=== PATIENT | female | born 2000 | race American Indian/Alaskan Native ===

== ENCOUNTER 2019-06-20 16:22 | Emergency (ER) | payer SELFPAY ==
[2019-06-20] MEDS ORDERED: NACL 0.9% 500 ML 500 ML IV ONE (16:41)
--- NOTE | 2019-06-20 16:45 | Emergency Department Report ---
Blank Doc - Documentation Documentation: 18-year-old female that presents with sore throat and weakness with body aches. This initial assessment/diagnostic orders/clinical plan/treatment(s) is/are subject to change based on patient's health status, clinical progression and re- assessment by fellow clinical providers in the ED. Further treatment and workup at subsequent clinical providers discretion. Patient/guardians urged not to elope from the ED as their condition may be serious if not clinically assessed and managed. Initial orders include: 1- Patient sent to [facility] for further evaluation and treatment 2- code sepsis initiated 3- sepsis protocol
[2019-06-20] MEDS ORDERED: IBUPROFEN PO ONE (16:47)
[2019-06-20 17:02] LABS: Hemoglobin 12.9 gm/dl (10.1-14.3); Mean Corpuscular HGB Conc 34 % (30-34); Mean Corpuscular Volume 82 fl (79-97); Red Blood Count 4.61 M/mm3 (3.65-5.03); Red Cell Distribution Width 14.7 % (13.2-15.2)
--- NOTE | 2019-06-20 17:10 | XRay Report ---
CHEST 1 VIEW INDICATION / CLINICAL INFORMATION: possible Sepsis. COMPARISON: None available. FINDINGS: SUPPORT DEVICES: None. HEART / MEDIASTINUM: No significant abnormality. LUNGS / PLEURA: No significant pulmonary or pleural abnormality.. No pneumothorax. ADDITIONAL FINDINGS: No significant additional findings. IMPRESSION: 1. No acute findings. Signer Name: Tyrell Ocasio MD Signed: 06/20/2019 5:06 PM Workstation Name: [id number]
[2019-06-20 17:13] LABS: INR 1.36 (0.87-1.13)
[2019-06-20 17:36] LABS: Alanine Aminotransferase 81 units/L (7-56); Albumin 3.9 g/dL (3.9-5); BUN/Creatinine Ratio 10; Blood Urea Nitrogen 6 mg/dL (7-17); Calcium 8.7 mg/dL (8.4-10.2); Hemolysis Index 0
[2019-06-20] MEDS ORDERED: NACL 0.9% 1000 ML 2,000 ML ONE (18:08)
[2019-06-20] MEDS ORDERED: DILAUDID IV ONE (18:28)
[2019-06-20] MEDS ORDERED: DECADRON IV ONE (18:28)
[2019-06-20] MEDS ORDERED: BICILLIN L-A IM ONE (18:28)
[2019-06-20] MEDS ORDERED: CLEOCIN 600 MG/50 mL 600 MG/50 ML BAG IV ONE (18:28)
[2019-06-20] MEDS ORDERED: NACL 0.9% 1000 ML 1,000 ML IV ONE (18:29)
[2019-06-20 20:22] LABS: Basophils % (Manual) 0 % (0.0-1.8); Eosinophils % (Manual) 0 % (0.0-4.3); Total Cells Counted 100
[2019-06-20 20:23] LABS: Platelet Estimate Consistent w Auto
[2019-06-20 20:24] LABS: Anisocytosis 1+
[2019-06-20 20:26] LABS: Platelet Count 145 K/mm3 (140-440)
--- NOTE | 2019-06-20 20:27 | Cat Scan Report ---
CT NECK WITH CONTRAST HISTORY: Neck pain with difficulty swallowing and elevated WBC count. COMPARISON: None. TECHNIQUE: Routine CT of the neck is performed following intravenous contrast. All CT scans at this [facility] are performed using CT dose reduction for ALARA by means of automated exposure control. CONTRAST: 100 ml of Omnipaque 300 FINDINGS: Skull Base: No significant abnormality. Parotid, Carotid, Retropharyngeal, Prevertebral, Pharyngeal Mucosal, and [place] Former Spaces: There is extensive hyperenhancing and mucosal swelling of the nasopharyngeal mucosa and bilateral tonsils cons istent with pharyngitis/tonsillitis, with fluid layering in the nasopharynx and obstruction of the na sopharyngeal airway. The oropharyngeal airway remains widely patent though. There is no appreciable f luid collection/abscess. There is no retropharyngeal or prevertebral edema/abscess. Lymphatics: No lymphadenopathy. Vasculature: No significant abnormality. Osseous Structures: No significant abnormality Additional findings: None. IMPRESSION: 1. Significant pharyngitis and tonsillitis with pharyngeal mucosal thickening resulting in significan t narrowing of the nasopharyngeal airway. The oropharyngeal airway remains widely patent. No abscess or prevertebral fluid collection. Signer Name: Hansel Espinosa MD Signed: 06/20/2019 8:23 PM Workstation Name: [id number]
[2019-06-20 21:15] LABS: Bilirubin,Urine NEG (Negative); Blood,Urine NEG (Negative); Color,Urine Yellow (Yellow); Mucus,Urine FEW /HPF; Protein,Urine <15 mg/dL mg/dL (Negative)
--- NOTE | 2019-06-20 21:57 | Emergency Department Report ---
ED General Adult HPI - General Chief complaint: Upper Respiratory Infection Stated complaint: CHEST PAIN/STUFFY NOSE/WEAK Time Seen by Provider: 06/20/19 16:43 Source: patient Mode of arrival: Ambulatory Limitations: No Limitations - History of Present Illness Initial comments: Patient is 18-year-old Sheela female was presented with sore throat for the past 2 weeks. Sore throat and progressively worsening is now a 10 out of 10 when she swallows. Patient also has a mild cough is nonproductive mild nausea and body aches. Patient states is been unable to keep anything down for the last several days. Patient has mild dizziness when she stands. Severity scale (0 -10): 7 - Related Data Previous Rx's Medication Instructions Recorded Last Taken Type Amlodipine Besylate [Norvasc] 5 mg PO DAILY #30 tablet 06/20/19 Unknown Rx Ibuprofen [Motrin 600 MG tab] 600 mg PO Q8H PRN #20 tablet 06/20/19 Unknown Rx Ondansetron [Zofran Odt] 4 mg PO Q8HR #10 tab.rapdis 06/20/19 Unknown Rx predniSONE [Deltasone] 10 mg PO .TAPER #21 tab 06/20/19 Unknown Rx Allergies Allergy/AdvReac Type Severity Reaction Status Date / Time No Known Allergies Allergy Unverified 06/20/19 16:28 ED Review of Systems ROS: Stated complaint: CHEST PAIN/STUFFY NOSE/WEAK Other details as noted in HPI Comment: All other systems reviewed and negative ED Past Medical Hx - Past Medical History Previous Medical History?: No - Surgical History Past Surgical History?: No - Social History Smoking Status: Never Smoker Substance Use Type: None - Medications Home Medications: Home Medications Medication Instructions Recorded Confirmed Last Taken Type Amlodipine Besylate [Norvasc] 5 mg PO DAILY #30 tablet 06/20/19 Unknown Rx Ibuprofen [Motrin 600 MG tab] 600 mg PO Q8H PRN #20 tablet 06/20/19 Unknown Rx Ondansetron [Zofran Odt] 4 mg PO Q8HR #10 tab.rapdis 06/20/19 Unknown Rx predniSONE [Deltasone] 10 mg PO .TAPER #21 tab 06/20/19 Unknown Rx ED Physical Exam - General Limitations: No Limitations General appearance: alert, in no apparent distress - Head Head exam: Present: atraumatic, normocephalic - Eye Eye exam: Present: normal appearance - ENT ENT exam: Present: mucous membranes moist. Absent: normal orophraynx - Expanded ENT Exam Expanded Mouth exam: Present: muffled voice. Absent: drooling, trismus Throat exam: Positive: tonsillar erythema, tonsillomegaly, tonsillar exudate, other (uvula is midline) - Neck Neck exam: Present: lymphadenopathy - Respiratory Respiratory exam: Present: normal lung sounds bilaterally. Absent: respiratory distress, wheezes, rales, rhonchi - Cardiovascular Cardiovascular Exam: Present: regular rate, normal rhythm. Absent: systolic murmur, diastolic murmur, rubs, gallop - GI/Abdominal GI/Abdominal exam: Present: soft, normal bowel sounds. Absent: distended, te nderness, guarding, rebound - Extremities Exam Extremities exam: Present: normal inspection - Back Exam Back exam: Present: normal inspection - Neurological Exam Neurological exam: Present: alert, oriented X3, CN II-XII intact - Psychiatric Psychiatric exam: Present: normal affect, normal mood - Skin Skin exam: Present: warm, dry, intact, normal color. Absent: rash ED Course Vital Signs 06/20/19 06/20/19 06/20/19 16:41 18:10 18:25 Temperature 103.1 F H 101.6 F H Pulse Rate 147 H 133 H Respiratory 19 30 H 26 H Rate Blood Pressure 123/73 Blood Pressure [Right] O2 Sat by Pulse 96 100 100 Oximetry 06/20/19 06/20/19 20:39 20:42 Temperature 98.4 F Pulse Rate 114 H 110 H Respiratory 23 Rate Blood Pressure Blood Pressure 121/65 [Right] O2 Sat by Pulse 98 Oximetry ED Medical Decision Making - Lab Data Result diagrams: 06/20/19 16:46 06/20/19 16:46 Lab Results 06/20/19 06/20/19 06/20/19 Range/Units 16:46 16:46 16:46 WBC 14.3 H (4.5-11.0) K/mm3 RBC 4.61 (3.65-5.03) M/mm3 Hgb 12.9 (10.1-14.3) gm/dl Hct 38.0 (30.3-42.9) % MCV 82 (79-97) fl MCH 28 (28-32) pg MCHC 34 (30-34) % RDW 14.7 (13.2-15.2) % Plt Count 145 (140-440) K/mm3 Lymph % (Auto) Stockholder Lymph # Stockholder Add Manual Diff Complete Total Counted 100 Seg Neutrophils % Stockholder Seg Neuts % (Manual) 56.0 (40.0-70.0) % Band Neutrophils % 0 % Lymphocytes % (Manual) 42.0 H (13.4-35.0) % Reactive Lymphs % (Man) 0 % Monocytes % (Manual) 2.0 (0.0-7.3) % Eosinophils % (Manual) 0 (0.0-4.3) % Basophils % (Manual) 0 (0.0-1.8) % Metamyelocytes % 0 % Myelocytes % 0 % Promyelocytes % 0 % Blast Cells % 0 % Nucleated RBC % Not Reportable Seg Neutrophils # Man 8.0 H (1.8-7.7) K/mm3 Band Neutrophils # 0.0 K/mm3 Lymphocytes # (Manual) 6.0 H (1.2-5.4) K/mm3 Abs React Lymphs (Man) 0.0 K/mm3 Monocytes # (Manual) 0.3 (0.0-0.8) K/mm3 Eosinophils # (Manual) 0.0 (0.0-0.4) K/mm3 Basophils # (Manual) 0.0 (0.0-0.1) K/mm3 Metamyelocytes # 0.0 K/mm3 Myelocytes # 0.0 K/mm3 Promyelocytes # 0.0 K/mm3 Blast Cells # 0.0 K/mm3 WBC Morphology Not Reportable Hypersegmented Neuts Not Reportable Hyposegmented Neuts Not Reportable Hypogranular Neuts Not Reportable Smudge Cells Not Reportable Toxic Granulation Not Reportable Toxic Vacuolation Not Reportable Dohle Bodies Not Reportable Pelger-Huet Anomaly Not Reportable Inge Rods Not Reportable Platelet Estimate Consistent w auto Clumped Platelets Not Reportable Plt Clumps, EDTA Not Reportable Large Platelets Not Reportable Giant Platelets Not Reportable Platelet Satelliting Not Reportable Plt Morphology Comment Not Reportable RBC Morphology Not Reportable Dimorphic RBCs Not Reportable Polychromasia Not Reportable Hypochromasia Not Reportable Poikilocytosis Not Reportable Anisocytosis 1+ Microcytosis Not Reportable Macrocytosis Not Reportable Spherocytes Not Reportable Pappenheimer Bodies Not Reportable Sickle Cells Not Reportable Target Cells Not Reportable Tear Drop Cells Not Reportable Ovalocytes Not Reportable Helmet Cells Not Reportable [place] Bodies Not Reportable [place] Rings Not Reportable Graham Cells Not Reportable Bite Cells Not Reportable Crenated Cell Not Reportable Elliptocytes Not Reportable Acanthocytes (Spur) Not Reportable Rouleaux Not Reportable Hemoglobin C Crystals Not Reportable Schistocytes Not Reportable Malaria parasites Not Reportable Delbert Bodies Not Reportable Hem Pathologist Commnt No PT 16.4 H (12.2-14.9) Sec. INR 1.36 H (0.87-1.13) VBG pH (7.320-7.420) Sodium 136 L (137-145) mmol/L Potassium 3.4 L (3.6-5.0) mmol/L Chloride 98.8 (98-107) mmol/L Carbon Dioxide 20 L (22-30) mmol/L Anion Gap 21 mmol/L BUN 6 L (7-17) mg/dL Creatinine 0.6 L (0.7-1.2) mg/dL Estimated GFR > 60 ml/min BUN/Creatinine Ratio 10 % Glucose 86 (65-100) mg/dL Lactic Acid (0.7-2.0) mmol/L Calcium 8.7 (8.4-10.2) mg/dL Total Bilirubin 0.70 (0.1-1.2) mg/dL AST 100 H (5-40) units/L ALT 81 H (7-56) units/L Alkaline Phosphatase 157 H (35-129) units/L Total Protein 9.0 H (6.3-8.2) g/dL Albumin 3.9 (3.9-5) g/dL Albumin/Globulin Ratio 0.8 % Urine Color (Yellow) Urine Turbidity (Clear) Urine pH (5.0-7.0) Ur Specific [place] (1.003-1.030) Urine Protein (Negative) mg/dL Urine Glucose (UA) (Negative) mg/dL Urine Ketones (Negative) mg/dL Urine Blood (Negative) Urine Nitrite (Negative) Urine Bilirubin (Negative) Urine Urobilinogen (<2.0) mg/dL Ur Leukocyte Esterase (Negative) Urine WBC (Auto) (0.0-6.0) /HPF Urine RBC (Auto) (0.0-6.0) /HPF U Epithel Cells (Auto) (0-13.0) /HPF Urine Mucus /HPF Monoscreen (Negative) 06/20/19 06/20/19 06/20/19 Range/Units 16:46 16:46 18:33 WBC (4.5-11.0) K/mm3 RBC (3.65-5.03) M/mm3 Hgb (10.1-14.3) gm/dl Hct (30.3-42.9) % MCV (79-97) fl MCH (28-32) pg MCHC (30-34) % RDW (13.2-15.2) % Plt Count (140-440) K/mm3 Lymph % (Auto) Lymph # Add Manual Diff Total Counted Seg Neutrophils % Seg Neuts % (Manual) (40.0-70.0) % Band Neutrophils % % Lymphocytes % (Manual) (13.4-35.0) % Reactive Lymphs % (Man) % Monocytes % (Manual) (0.0-7.3) % Eosinophils % (Manual) (0.0-4.3) % Basophils % (Manual) (0.0-1.8) % Metamyelocytes % % Myelocytes % % Promyelocytes % % Blast Cells % % Nucleated RBC % Seg Neutrophils # Man (1.8-7.7) K/mm3 Band Neutrophils # K/mm3 Lymphocytes # (Manual) (1.2-5.4) K/mm3 Abs React Lymphs (Man) K/mm3 Monocytes # (Manual) (0.0-0.8) K/mm3 Eosinophils # (Manual) (0.0-0.4) K/mm3 Basophils # (Manual) (0.0-0.1) K/mm3 Metamyelocytes # K/mm3 Myelocytes # K/mm3 Promyelocytes # K/mm3 Blast Cells # K/mm3 WBC Morphology Hypersegmented Neuts Hyposegmented Neuts Hypogranular Neuts Smudge Cells Toxic Granulation Toxic Vacuolation Dohle Bodies Pelger-Huet Anomaly Inge Rods Platelet Estimate Clumped Platelets Plt Clumps, EDTA Large Platelets Giant Platelets Platelet Satelliting Plt Morphology Comment RBC Morphology Dimorphic RBCs Polychromasia Hypochromasia Poikilocytosis Anisocytosis Microcytosis Macrocytosis Spherocytes Pappenheimer Bodies Sickle Cells Target Cells Tear Drop Cells Ovalocytes Helmet Cells [place] Bodies [place] Rings Day Cells Bite Cells Crenated Cell Elliptocytes Acanthocytes (Spur) Rouleaux Hemoglobin C Crystals Schistocytes Malaria parasites Delbert Bodies Hem Pathologist Commnt PT (12.2-14.9) Sec. INR (0.87-1.13) VBG pH 7.451 H (7.320-7.420) Sodium (137-145) mmol/L Potassium (3.6-5.0) mmol/L Chloride (98-107) mmol/L Carbon Dioxide (22-30) mmol/L Anion Gap mmol/L BUN (7-17) mg/dL Creatinine (0.7-1.2) mg/dL Estimated GFR ml/min BUN/Creatinine Ratio % Glucose (65-100) mg/dL Lactic Acid 1.60 (0.7-2.0) mmol/L Calcium (8.4-10.2) mg/dL Total Bilirubin (0.1-1.2) mg/dL AST (5-40) units/L ALT (7-56) units/L Alkaline Phosphatase (35-129) units/L Total Protein (6.3-8.2) g/dL Albumin (3.9-5) g/dL Albumin/Globulin Ratio % Urine Color (Yellow) Urine Turbidity (Clear) Urine pH (5.0-7.0) Ur Specific [place] (1.003-1.030) Urine Protein (Negative) mg/dL Urine Glucose (UA) (Negative) mg/dL Urine Ketones (Negative) mg/dL Urine Blood (Negative) Urine Nitrite (Negative) Urine Bilirubin (Negative) Urine Urobilinogen (<2.0) mg/dL Ur Leukocyte Esterase (Negative) Urine WBC (Auto) (0.0-6.0) /HPF Urine RBC (Auto) (0.0-6.0) /HPF U Epithel Cells (Auto) (0-13.0) /HPF Urine Mucus /HPF Monoscreen Positive (Negative) 06/20/19 06/20/19 Range/Units 19:30 20:41 WBC (4.5-11.0) K/mm3 RBC (3.65-5.03) M/mm3 Hgb (10.1-14.3) gm/dl Hct (30.3-42.9) % MCV (79-97) fl MCH (28-32) pg MCHC (30-34) % RDW (13.2-15.2) % Plt Count (140-440) K/mm3 Lymph % (Auto) Lymph # Add Manual Diff Total Counted Seg Neutrophils % Seg Neuts % (Manual) (40.0-70.0) % Band Neutrophils % % Lymphocytes % (Manual) (13.4-35.0) % Reactive Lymphs % (Man) % Monocytes % (Manual) (0.0-7.3) % Eosinophils % (Manual) (0.0-4.3) % Basophils % (Manual) (0.0-1.8) % Metamyelocytes % % Myelocytes % % Promyelocytes % % Blast Cells % % Nucleated RBC % Seg Neutrophils # Man (1.8-7.7) K/mm3 Band Neutrophils # K/mm3 Lymphocytes # (Manual) (1.2-5.4) K/mm3 Abs React Lymphs (Man) K/mm3 Monocytes # (Manual) (0.0-0.8) K/mm3 Eosinophils # (Manual) (0.0-0.4) K/mm3 Basophils # (Manual) (0.0-0.1) K/mm3 Metamyelocytes # K/mm3 Myelocytes # K/mm3 Promyelocytes # K/mm3 Blast Cells # K/mm3 WBC Morphology Hypersegmented Neuts Hyposegmented Neuts Hypogranular Neuts Smudge Cells Toxic Granulation Toxic Vacuolation Dohle Bodies Pelger-Huet Anomaly Inge Rods Platelet Estimate Clumped Platelets Plt Clumps, EDTA Large Platelets Giant Platelets Platelet Satelliting Plt Morphology Comment RBC Morphology Dimorphic RBCs Polychromasia Hypochromasia Poikilocytosis Anisocytosis Microcytosis Macrocytosis Spherocytes Pappenheimer Bodies Sickle Cells Target Cells Tear Drop Cells Ovalocytes Helmet Cells [place] Bodies [place] Rings Graham Cells Bite Cells Crenated Cell Elliptocytes Acanthocytes (Spur) Rouleaux Hemoglobin C Crystals Schistocytes Malaria parasites Delbert Bodies Hem Pathologist Commnt PT (12.2-14.9) Sec. INR (0.87-1.13) VBG pH (7.320-7.420) Sodium (137-145) mmol/L Potassium (3.6-5.0) mmol/L Chloride (98-107) mmol/L Carbon Dioxide (22-30) mmol/L Anion Gap mmol/L BUN (7-17) mg/dL Creatinine (0.7-1.2) mg/dL Estimated GFR ml/min BUN/Creatinine Ratio % Glucose (65-100) mg/dL Lactic Acid 1.60 (0.7-2.0) mmol/L Calcium (8.4-10.2) mg/dL Total Bilirubin (0.1-1.2) mg/dL AST (5-40) units/L ALT (7-56) units/L Alkaline Phosphatase (35-129) units/L Total Protein (6.3-8.2) g/dL Albumin (3.9-5) g/dL Albumin/Globulin Ratio % Urine Color Yellow (Yellow) Urine Turbidity Clear (Clear) Urine pH 6.0 (5.0-7.0) Ur Specific [place] 1.045 H (1.003-1.030) Urine Protein <15 mg/dl (Negative) mg/dL Urine Glucose (UA) Neg (Negative) mg/dL Urine Ketones 80 (Negative) mg/dL Urine Blood Neg (Negative) Urine Nitrite Neg (Negative) Urine Bilirubin Neg (Negative) Urine Urobilinogen 2.0 (<2.0) mg/dL Ur Leukocyte Esterase Neg (Negative) Urine WBC (Auto) 3.0 (0.0-6.0) /HPF Urine RBC (Auto) 1.0 (0.0-6.0) /HPF U Epithel Cells (Auto) 2.0 (0-13.0) /HPF Urine Mucus Few /HPF Monoscreen (Negative) - Radiology Data [facility] [address] [place] [address] Cat Scan Report Signed Patient: ISAEL LEIJA MR#: [id number] : 2000 Acct:[id number] Age/Sex: 18 / F ADM Date: 06/20/19 Loc: ED Attending Dr: Ordering Physician: MARGI BELL MD Date of Service: 06/20/19 Procedure(s): CT neck w con Accession Number(s): [id number] cc: MARGI BELL MD CT NECK WITH CONTRAST HISTORY: Neck pain with difficulty swallowing and elevated WBC count. COMPARISON: None. TECHNIQUE: Routine CT of the neck is performed following intravenous contrast. All CT scans at this location are performed using CT dose reduction for ALARA by means of automated exposure cont rol. CONTRAST: 100 ml of Omnipaque 300 FINDINGS: Skull Base: No significant abnormality. Parotid, Carotid, Retropharyngeal, Prevertebral, Pharyngeal Mucosal, and [place]eto Repairer Spaces: There is extensive hyperenhancing and mucosal swelling of the nasopharyngeal mucosa and bilateral tonsils consistent with pharyngitis/tonsillitis, with fluid layering in the nasopharynx and obstruction of the nasopharyngeal airway. The oropharyngeal airway remains widely patent though. There is no appreciable fluid collection/abscess. There is no retropharyngeal or prevertebral edema/abscess. Lymphatics: No lymphadenopathy. Vasculature: No significant abnormality. Osseous Structures: No significant abnormality Additional findings: None. IMPRESSION: 1. Significant pharyngitis and tonsillitis with pharyngeal mucosal thickening resulting in significant narrowing of the nasopharyngeal airway. The oropharyngeal airway remains widely patent. No abscess or prevertebral fluid collection. Signer Name: Hansel Espinosa MD Signed: 06/20/2019 8:23 PM Workstation Name: [id number] Transcribed By: KEIRA Dictated By: Hansel Espinosa MD Electronically Authenticated By: Hansel Espinosa MD Signed Date/Time: 06/20/192022 DD/ 19 TD/TT: - Medical Decision Making Patient is 18-year-old Female who is presenting with sore throat. Patient may review of her laboratory studies has a slight increase of her white count however lactic acid is within normal limits and there is no evidence of end organ damage suggestive of sepsis. Patient is positive for mono. Patient was hydrated for dehydration. Patient given 10 mg of Decadron as well as pain medications. At the end of the patient's visit she was able to swallow and keep down water. Patient states she is able to open her mouth better. Patient will be discharged home with medications for symptomatic relief. Critical care attestation.: If time is entered above; I have spent that time in minutes in the direct care of this critically ill patient, excluding procedure time. ED Disposition Clinical Impression: Exudative pharyngitis Mononucleosis Qualifiers: Infectious mononucleosis etiology: gammaherpesvirus (incl. EBV) Infectious mononucleosis complication: without complication Qualified Code(s): B27.00 - Gammaherpesviral mononucleosis without complication Disposition: DC-01 TO HOME OR SELFCARE Is pt being admited?: No Does the pt Need Aspirin: No Condition: Stable Instructions: Mononucleosis (ED) Referrals: LUIS BURGER MD [Primary Care Provider] - 3-5 Days Time of Disposition: 21:57
[2019-06-20 22:27] VITALS: BP 99/55
== END 2019-06-20 23:10 | disposition home or self-care (01) ==
LOC: ED 16:22
DX: J02.9 Acute pharyngitis, unspecified (principal); B27.90 Infectious mononucleosis, unspecified without complication
CPT/HCPCS: 36415; 70491; 71045; 80053; 81001; 82140; 82805; 85007; 85025; 85610; 86308; 87040; 87086; 87116; 87400; 87430; 93005; 93010; 96361; 96365; 96372; 96375; 99285; J0561; J1100; J1170; J7030; J7040; Q9967

== ENCOUNTER 2020-11-19 06:02 | Emergency (ER) | payer OTHER ==
[2020-11-19 07:25] LABS: HCG Qualitative,Urine Positive (Negative)
[2020-11-19] MEDS ORDERED: ACETAMINOPHEN 325 MG TAB PO ONE (08:15)
[2020-11-19 08:54] LABS: Bilirubin,Urine NEG (Negative); Blood,Urine NEG (Negative); Color,Urine Yellow (Yellow); Mucus,Urine FEW /HPF
--- NOTE | 2020-11-19 08:55 | Emergency Department Report ---
ED HPI - General Chief complaint: Abdominal Pain Stated complaint: ABD PAIN/ Time Seen by Provider: 11/19/20 08:03 Source: patient Mode of arrival: Wheelchair Limitations: No Limitations - History of Present Illness Initial comments: Patient is a 20-year-old F Swazi female who is presenting with suprapubic pain. Patient states that she knows she is but does not know her last menstrual period. She has not had any care at this time. Patient has had some lower abdominal pain for the last 2 days. States there is some mild dysuria. She denies any vaginal bleeding at this time. Pain estimated at 7 out of 10 in severity. - Related Data Previous Rx's Medication Instructions Recorded Last Taken Type HYDROcodone/APAP 5-325 [[place] 1 each PO Q6HR PRN #14 tablet 06/20/19 Unknown Rx 5/325] Ibuprofen [Motrin 600 MG tab] 600 mg PO Q8H PRN #20 tablet 06/20/19 Unknown Rx Ondansetron [Zofran Odt] 4 mg PO Q8HR #10 tab.rapdis 06/20/19 Unknown Rx predniSONE 10 mg PO .TAPER #21 tab 06/20/19 Unknown Rx Allergies Allergy/AdvReac Type Severity Reaction Status Date / Time No Known Allergies Allergy Unverified 11/19/20 06:06 ED Review of Systems ROS: Stated complaint: ABD PAIN/ Other details as noted in HPI Comment: All other systems reviewed and negative ED Past Medical Hx - Past Medical History Previous Medical History?: No - Surgical History Past Surgical History?: No - Social History Smoking Status: Never Smoker Substance Use Type: None - Medications Home Medications: Home Medications Medication Instructions Recorded Confirmed Last Taken Type HYDROcodone/APAP 5-325 [[place] 1 each PO Q6HR PRN #14 tablet 06/20/19 Unknown Rx 5/325] Ibuprofen [Motrin 600 MG tab] 600 mg PO Q8H PRN #20 tablet 06/20/19 Unknown Rx Ondansetron [Zofran Odt] 4 mg PO Q8HR #10 tab.rapdis 06/20/19 Unknown Rx predniSONE 10 mg PO .TAPER #21 tab 06/20/19 Unknown Rx ED Physical Exam - General Limitations: No Limitations General appearance: alert, in no apparent distress - Head Head exam: Present: atraumatic, normocephalic - Eye Eye exam: Present: normal appearance - ENT ENT exam: Present: mucous membranes moist - Neck Neck exam: Present: normal inspection - Respiratory Respiratory exam: Present: normal lung sounds bilaterally. Absent: respiratory distress, wheezes, rales, rhonchi - Cardiovascular Cardiovascular Exam: Present: regular rate, normal rhythm, normal heart sounds. Absent: systolic murmur, diastolic murmur, rubs, gallop - GI/Abdominal GI/Abdominal exam: Present: soft, tenderness (Suprapubic), normal bowel sounds, other (Gravid uterus). Absent: distended, guarding, rebound, rigid - Extremities Exam Extremities exam: Present: normal inspection - Back Exam Back exam: Present: normal inspection - Neurological Exam Neurological exam: Present: alert, oriented X3 - Psychiatric Psychiatric exam: Present: normal affect, normal mood - Skin Skin exam: Present: warm, dry, intact, normal color. Absent: rash ED Course Vital Signs 11/19/20 06:05 Temperature 98.1 F Pulse Rate 99 H Respiratory 18 Rate Blood Pressure 113/76 O2 Sat by Pulse 98 Oximetry - Reevaluation(s) Reevaluation #1: 11/19/20 08:54 Patient clinically appears greater than 20 weeks however because she has no confirmation of being this far along labor and delivery would not accept her initially. Bedside ultrasound done by me did show twin gestations with viable heartbeats. Was unable to get accurate dates therefore the patient was sent to ultrasound for an official study. Urinalysis has been ordered as well. ED Medical Decision Making - Lab Data Lab Results 11/19/20 11/19/20 11/19/20 Range/Units 07:00 07:08 07:46 HCG, Quant 08661 H (0-4) mIU/mL Urine Color Yellow (Yellow) Urine Turbidity Clear (Clear) Urine pH 6.0 (5.0-7.0) Ur Specific [place] 1.027 (1.003-1.030) Urine Protein 30 mg/dl (Negative) mg/dL Urine Glucose (UA) Neg (Negative) mg/dL Urine Ketones Tr (Negative) mg/dL Urine Blood Neg (Negative) Urine Nitrite Neg (Negative) Urine Bilirubin Neg (Negative) Urine Urobilinogen 4.0 (<2.0) mg/dL Ur Leukocyte Esterase Neg (Negative) Urine WBC (Auto) 1.0 (0.0-6.0) /HPF Urine RBC (Auto) 1.0 (0.0-6.0) /HPF U Epithel Cells (Auto) 1.0 (0-13.0) /HPF Urine Mucus Few /HPF Urine HCG, Qual Positive A (Negative) - Radiology Data [facility] [address] [place] [address] Ultrasound Report Signed Patient: ISAEL LEIJA MR#: [id number] : 2000 Acct:[id number] Age/Sex: 20 / F ADM Date: 11/19/20 Loc: ED Attending Dr: Ordering Physician: MARGI BELL MD Date of Service: 11/19/20 Procedure(s): US OB >= 14 weeks Fetus Accession Number(s): [id number] cc: MARGI BELL MD US OB >= 14 wk fetus add gest, US OB >= 14 weeks Fetus. INDICATION / CLINICAL INFORMATION: abd pain. COMPARISON: None available. FINDINGS: Twin intrauterine . The cervix measures 4.1 cm and is closed. FETUS A: PRESENTATION: Variable PLACENTA: Left lateral and free of the os. AMNIOTIC FLUID VOLUME: normal; largest vertical pocket measures 4.9 cm, within normal limits. ANATOMY: organs (including the bladder, stomach, kidneys, heart, umbilical cord, diaphragm, cord insertion, spine and intracranial structures) are visualized and show no significant abnormality with the following exception(s): None. MEASUREMENTS: - Biparietal Diameter = 4.4 cm = 19 weeks 3 days - Head Circumference = 16 cm = 18 weeks 6 days - Abdominal Circumference = 14.3 cm = 19 weeks 5 days - Femur Length = 2.8 cm = 18 weeks 4 days - US gestational age: 19 weeks 1 day - Estimated Weight (in grams, if calculated): 274 - Heart Rate (beats per minute): 149 FETUS B: PRESENTATION: variable PLACENTA: anterior and free of the os. AMNIOTIC FLUID VOLUME: normal; largest vertical pocket measures 3.2 cm, within normal limits. ANATOMY: organs (including the bladder, stomach, kidneys, heart, umbilical cord, diaphragm, cord insertion, spine and intracranial structures) are visualized and show no significant abnormality with the following exception(s): Single small echogenic intracardiac focus is present. MEASUREMENTS: - Biparietal Diameter = 4.6 cm = 19 weeks 6 days - Head Circumference = 15.8 cm = 18 weeks 5 days - Abdominal Circumference = 13.3 cm = 18 weeks 5 days - Femur Length = 2.9 cm = 18 weeks 6 days - US gestational age: 19 weeks 0 days - Estimated Weight (in grams, if calculated): 259 - Heart Rate (beats per minute): 144 IMPRESSION: 1. Viable twin intrauterine , as described above. 2. Small single echogenic intracardiac focus in fetus B. This is a nonspecific finding. Recommend PUBLIC WORKS COMMISSIONER consultation to assess maternal risk factors and need for further follow-up. 3. Otherwise, no significant sonographic abnormality. Signer Name: Elroy Jordan MD Signed: 11/19/2020 10:19 AM Workstation Name: [email or web address] Transcribed By: AMENA Dictated By: ELROY JORDAN MD Electronically Authenticated By: ELROY JORDAN MD Signed Date/Time: 11/19/20 1019 - Medical Decision Making Patient with viable twin gestations is approximately 19 weeks. Patient likely with some round ligament pain. Urine is negative for infection. There is no v aginal bleeding at this time. Patient given CLINICAL RECRUITER follow-up and will be discharged home. Critical care attestation.: If time is entered above; I have spent that time in minutes in the direct care of this critically ill patient, excluding procedure time. ED Disposition Clinical Impression: Twin gestation in second trimester, Abdominal pain affecting Disposition: DC-01 TO HOME OR SELFCARE Is pt being admited?: No Does the pt Need Aspirin: No Condition: Stable Instructions: Abdominal Pain (ED), Round Ligament Pain, Multiple Additional Instructions: Please take Tylenol for pain. You can take 2 tablets every 4-6 hours Referrals: LEEANN SWAIN MD [Staff Physician] - 3-5 Days Time of Disposition: 11:05
--- NOTE | 2020-11-19 10:23 | Ultrasound Report ---
US OB >= 14 wk fetus add gest, US OB >= 14 weeks Fetus. INDICATION / CLINICAL INFORMATION: abd pain. COMPARISON: None available. FINDINGS: Twin intrauterine . The cervix measures 4.1 cm and is closed. FETUS A: PRESENTATION: Variable PLACENTA: Left lateral and free of the os. AMNIOTIC FLUID VOLUME: normal; largest vertical pocket measures 4.9 cm, within normal limits. ANATOMY: organs (including the bladder, stomach, kidneys, heart, umbilical cord, diaphragm, cord inserti on, spine and intracranial structures) are visualized and show no significant abnormality with the fo llowing exception(s): None. MEASUREMENTS: - Biparietal Diameter = 4.4 cm = 19 weeks 3 days - Head Circumference = 16 cm = 18 weeks 6 days - Abdominal Circumference = 14.3 cm = 19 weeks 5 days - Femur Length = 2.8 cm = 18 weeks 4 days - US gestational age: 19 weeks 1 day - Estimated Weight (in grams, if calculated): 274 - Heart Rate (beats per minute): 149 FETUS B: PRESENTATION: variable PLACENTA: anterior and free of the os. AMNIOTIC FLUID VOLUME: normal; largest vertical pocket measures 3.2 cm, within normal limits. ANATOMY: organs (including the bladder, stomach, kidneys, heart, umbilical cord, diaphragm, cord inserti on, spine and intracranial structures) are visualized and show no significant abnormality with the fo llowing exception(s): Single small echogenic intracardiac focus is present. MEASUREMENTS: - Biparietal Diameter = 4.6 cm = 19 weeks 6 days - Head Circumference = 15.8 cm = 18 weeks 5 days - Abdominal Circumference = 13.3 cm = 18 weeks 5 days - Femur Length = 2.9 cm = 18 weeks 6 days - US gestational age: 19 weeks 0 days - Estimated Weight (in grams, if calculated): 259 - Heart Rate (beats per minute): 144 IMPRESSION: 1. Viable twin intrauterine , as described above. 2. Small single echogenic intracardiac focus in fetus B. This is a nonspecific finding. Recommend DIRECTOR PERIOPERATIVE consultation to assess maternal risk factors and need for further follow-up. 3. Otherwise, no significant sonographic abnormality. Signer Name: Cirstian Jordan MD Signed: 11/19/2020 10:19 AM Workstation Name: [email or web address]
[2020-11-19 12:06] VITALS: BP 116/63
== END 2020-11-19 12:06 | disposition home or self-care (01) ==
LOC: ED 06:02
DX: O26.891 Other specified pregnancy related conditions, first trimester (principal); R10.9 Unspecified abdominal pain; O30.001 Twin pregnancy, unspecified number of placenta and unspecified number of amniotic sacs, first trimester; Z79.899 Other long term (current) drug therapy
CPT/HCPCS: 36415; 76805; 76810; 81001; 81025; 84702